=== PATIENT | female | born 1985 | race Two or more races ===

== ENCOUNTER 2024-09-15 18:47 | Emergency (ER) | payer OTHER, SELFPAY ==
[2024-09-15] VITALS (10 sets, daily range): BP systolic 97–175; BP diastolic 71–131; PULSE 72–103; RESP 13–20; TEMP 36.8–36.9; O2SAT 90–99; BMI 32.2
--- NOTE | 2024-09-15 19:40 | XR_ITS ---
Examination: PA lateral chest 2 views TECHNIQUE: Upright PA lateral chest 2 views Examination time: September 15, 2024 at 1950 hours INDICATIONS: Coughing fever beginning 5 days ago. FINDINGS: Normal heart size. The lungs are clear. The osseous structures are intact IMPRESSION: No active disease
--- NOTE | 2024-09-15 19:40 | EKG_ITS ---
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1985 Requested By: Alexi Resendiz ([facility]) Order Number: [id number] Reading MD: Alexi Resendiz ([facility]) Measurements Intervals [place] Rate: 99 P: 62 VA: 128 QRS: 33 QRSD: 84 T: 53 QT: 344 QTc: 442 Interpretive Statements SINUS RHYTHM WITH SINUS ARRHYTHMIA POSSIBLE LEFT ATRIAL ENLARGEMENT [-0.1mV P WAVE IN V1/V2] POSSIBLE RIGHT VENTRICULAR CONDUCTION DELAY [RSR (QR) IN V1/V2] SEPTAL MYOCARDIAL INFARCTION , OF INDETERMINATE AGE [40+ ms Q WAVE IN V1/V2] No previous ECG available for comparison /store/S0/[id number].pdf
--- NOTE | 2024-09-15 19:40 | PD.EDRME ---
Rapid Medical Screening Exam RME Arrival date/time: 09/15/24 18:47 39-year-old obese female with past medical history of hypertension noncompliant presents emergency department complaining of chest tightness and pressure that is been ongoing for several days. Chief Complaint: Chest Pain Time Seen by Provider: 09/15/24 19:36 Vital signs: Vital Signs Temperature 98.5 F 09/15/24 19:29 Pulse Rate 91 09/15/24 19:29 Respiratory Rate 20 09/15/24 19:29 Blood Pressure 155/109 H 09/15/24 19:29 Pulse Oximetry (%) 97 09/15/24 19:29 Oxygen Delivery Method Room Air 09/15/24 19:29 Vital signs reviewed by provider: Yes
[2024-09-15 20:14] LABS: Basophils % (Auto) 0 % (0-2.5); Eosinophils # (Auto) 0.1 Thou/mm3 (0.0-0.5); Eosinophils % (Auto) 1 % (0-10); Hematocrit 39.9 % (36.0-46.0); Hemoglobin 13.5 g/dL (12.0-16.0); Immature Granulocytes % (Auto) 0 % (0-0); Immature Granulocytes Auto 0.02 Thou/mm3 (0.00-0.00); Lymphocytes # (Auto) 1.4 Thou/mm3 (1.0-4.8); Lymphocytes % (Auto) 20 % (10-50); Mean Corpuscular HGB Conc 33.8 g/dl (31.0-37.0); Mean Corpuscular Hemoglobin 27.5 pg (25.0-35.0); Mean Corpuscular Volume 81 fL (80-100); Monocytes # (Auto) 0.5 Thou/mm3 (0.0-0.8); Monocytes % (Auto) 7 % (0-12); Neutrophils # (Auto) 5.1 Thou/mm3 (1.8-7.7); Neutrophils % (Auto) 72 % (37-80); Nucleated Red Blood Cell % 0 /100 WBC (0); Platelet Count 230 Thou/mm3 (140-440); Red Blood Count 4.91 Miln/mm3 (4.00-5.20); White Blood Count 7.1 Thou/mm3 (3.6-11.0)
[2024-09-15] MEDS: hydrALAZINE HCL 25 MG TABLET PO (20:20)
[2024-09-15 20:34] LABS: B-Type Natriuretic Peptide < 20 pg/mL (0-100)
[2024-09-15 20:36] LABS: Alanine Aminotransferase 166 U/L (10-49); Albumin, Serum 4.6 gm/dL (3.5-5.0); Albumin/Globulin Ratio 1.6 (1.2-2.2); Alkaline Phosphatase 105 U/L (46-116); Anion Gap 8 (7-16); Aspartate Amino Transferase 112 U/L (0-34); BUN/Creatinine Ratio 16 Ratio (12-20); Bilirubin,Total 0.6 mg/dL (0.3-1.2); Blood Urea Nitrogen 13 mg/dL (9-23); Carbon Dioxide 28.2 mMol/L (20.0-31.0); Chloride 105 mMol/L (98-107); Creatinine (Component) 0.8 mg/dL (0.6-1.3); Estimated Creatinine Clearance 84.5 mL/min (>60); Globulin 2.8 gm/dL (2.3-3.5); Glucose 107 mg/dL (74-106); Osmolality,Calculated 281 (275-295); Potassium 3.9 mMol/L (3.4-5.1); Sodium 141 mMol/L (136-145); Total Protein 7.4 gm/dL (5.7-8.2); Troponin I < 0.002 ng/mL (0.0-0.045); eGFR > 60 See Note
[2024-09-15 20:40] LABS: HCG,Qualitative Serum Negative
[2024-09-15 23:18] LABS: Amphetamine/Methamp Scrn,U Negative (Negative); Barbiturate Screen,Urine Negative (Negative); Benzodiazepines Screen,Urine Negative (Negative); Benzoylecgonine Screen, Ur Negative (Negative); Fentanyl Screen,Urine Negative (Negative); Opiate Screen,Urine Negative (Negative); THC Screen,Urine Negative (Negative)
--- NOTE | 2024-09-15 23:34 | EDNOTE_ITS ---
ED Chest Pain RME/HPI General Chief Complaint: Chest Pain Stated Complaint: RAN OUT OF HTN PILLS C/O CHEST TIGHTNESS Time Seen by Provider: 09/15/24 19:36 Source: patient Arrival date/time: 09/15/24 18:47 Mode of arrival: ambulatory Limitations: no limitations RME / HPI RME / HPI narrative: 09/15/24 18:47 39-year-old obese female with past medical history of hypertension noncompliant presents emergency department complaining of chest tightness and pressure that is been ongoing for several days. Dr. Michael?s Main ED Evaluation: 39-year-old female presenting to the emergency department with complaints of chest tightness, which she rates as 5 out of 10 in severity. The discomfort has been persistent for the past two days and is accompanied by cough, shortness of breath, chills, muscle aches, sore throat, headache, dizziness, diarrhea, and a runny nose. The chest tightness since yesterday, intermittent, non-radiating and not associated with palpitations, syncope, or chest pressure. She reports difficulty breathing, which has worsened over the past week. She has no known sick contacts at home. She also reports that she has run out of her prescribed hypertension medication, which she has not taken for an unspecified period. She last took Motrin at 5:00 PM to relieve her symptoms, with no significant improvement. The persistence of symptoms and worsening breathing prompted her visit to the ER. Related Data Previous Rx's ?Medication ?Instructions ?Recorded amoxicillin 875 mg-potassium 1 tab PO BID #14 tabs 11/05 clavulanate 125 mg tablet Allergies Allergy/AdvReac Type Severity Reaction Status Date / Time No Known Drug Allergies Allergy Verified 09/15/24 18:49 Review of Systems Review of Systems Systems Reviewed: All systems reviewed, normal except as documented Past Medical History Past Medical History CARDIAC: Positive Hypertension; Negative Congestive Heart Failure RESPIRATORY: Negative Chronic Obstructive Pulmonary Disease (COPD) GENITOURINARY: Negative Renal Disease ENDOCRINE: Negative Diabetes Mellitus Type 1 OTHER HISTORY: Negative Blood Transfusions Social History SMOKING STATUS: Never smoker ED Exam General Limitations: Present no limitations General appearance: Present alert, in no apparent distress and other (Patient appears mildly uncomfortable but is alert and oriented. Appears dehydrated, eyes sunken in.) Head Head exam: Present atraumatic Eye Eye exam: Present normal appearance, PERRL, EOMI and other (No jaundice; sclera are anicteric.) ENT ENT exam: Present normal exam, normal oropharynx and mucous membranes moist Neck Neck exam: Present normal inspection, full ROM and trachea midline Chest Chest inspection: Present normal inspection and symmetric chest wall rise Respiratory Respiratory exam: Present normal lung sounds bilaterally Cardiovascular Cardiovascular exam: Present regular rate, normal rhythm and normal heart sounds Abdominal Exam Abdominal exam: Present soft, normal bowel sounds and other (RUQ tenderness to palpation without rebound or guarding. Abdomen appears bloated but is non- distended. ) Extremities Exam Extremities exam: Present normal inspection and full ROM Back Exam Back exam: Present normal inspection and full ROM Neurological Exam Neurological exam: Present alert, oriented X3 and CN II-XII intact Psychiatric Psychiatric exam: Present normal affect and normal mood Skin Skin exam: Present warm, dry, intact and normal color Course Course Course Narrative: CXR is ordered for determining etiology of chest pain. Quality Measures none Orders Category Date Time Status Bedside Influenza A&B Antigen Test NOW Care 09/15/24 19:[address] Screening NOW Care 09/16/24 01:00 Completed EKG (ED ONLY) *Do not use* NOW Care 09/15/24 19:40 Completed Saline [Insert IV] STAT Care 09/16/24 01:[address] angio chest Stat Exams 09/16/24 01:00 Completed EKG (ED Only) Stat Exams 09/15/24 19:40 Draft XR chest 2V Stat Exams 09/15/24 19:40 Completed BNP [B-Type Natriuretic Peptide] Stat Lab 09/15/24 19:57 Completed CBC Stat Lab 09/15/24 19:57 Completed Comprehensive Metabolic Panel Stat Lab 09/15/24 19:57 Completed Drug Screen,Urine Stat Lab 09/15/24 20:15 Completed HCG,Qualitative Serum Stat Lab 09/15/24 19:57 Completed Troponin I Stat Lab 09/15/24 19:57 Completed Acetaminophen Tab [Tylenol Tab] Med 09/16/24 01:32 Discontinued 650 mg PO X1 ONE DiphenhydrAMINE INJ [Benadryl Inj] Med 09/16/24 02:52 Discontinued 25 mg IVP X1 ONE Metoclopramide Inj [Reglan Inj] Med 09/16/24 03:09 Discontinued 10 mg .ROUTE .STK-MED ONE Metoclopramide Inj [Reglan Inj] Med 09/16/24 02:52 Discontinued 10 mg IVP X1 ONE Ondansetron Inj [Zofran Inj] Med 09/16/24 01:02 Discontinued 4 mg IV X1 ONE Sodium Chloride 0.9% 1000 ml [Ns] 1,000 ml Med 09/16/24 01:00 Discontinued IV 999 mls/hr hydrALAZINE HCL [Apresoline] Med 09/15/24 19:42 Discontinued 25 mg PO X1 ONE Vital Signs Vital signs: Vital Signs Temperature 98.5 F 09/15/24 19:29 Pulse Rate 91 09/15/24 19:29 Respiratory Rate 20 09/15/24 19:29 Blood Pressure 155/109 H 09/15/24 19:29 Pulse Oximetry (%) 97 09/15/24 19:29 Oxygen Delivery Method Room Air 09/15/24 19:29 Procedures -ED EKG Interpretation #1: Additional EKG comment: The EKG, personally interpreted on 09/15/2024 at 19:43, shows normal sinus rhythm (NSR) with a heart rate of 99 bpm, non-specific findings, and no ST elevations or depressions. Chest Pain MDM Narrative MDM Narrative:: The differential diagnosis includes hypertensive emergency, hypertensive urgency, and pneumonia. Scribe Attestation: ISade, am scribing for and in the presence of Dr. Michael. Provider Notation: Although this document has been carefully reviewed, there may still be some phonetic and other typographical errors. These errors are purely grammatical due to imperfections in the software program and should not be construed in any way to compromise the substance of the patient's medical care during this visit. Patient data External records reviewed:: [facility] previous records Clinical information provided by:: patient Social determinants that could affect healthcare access:: none Patient has the following chronic illnesses:: see PMH How is presenting disease/condition affected by chronic disease/condition?: uneffected by Evaluation data The following diagnostics were reviewed and interpreted by me:: lab results, radiology exam(s) and EKG tracing(s) Lab and/or radiology exams considered but not ordered:: none Interpretation Summary: I personally reviewed the radiology data and agree with the radiologist's interpretation. Examination: PA lateral chest 2 views TECHNIQUE: Upright PA lateral chest 2 views Examination time: September 15, 2024 at 1950 hours INDICATIONS: Coughing fever beginning 5 days ago. FINDINGS: Normal heart size. The lungs are clear. The osseous structures are intact IMPRESSION: No active disease Dictated By: Reagan Holloway MD CT angiogram of the chest with intravenous contrast September 16, 2024 0214 hours Clinical History: 39yo with chest pain Comparison: None. Findings: There is no filling defect within the pulmonary artery divisions to suggest pulmonary thromboembolism. The mediastinum demonstrates no evidence of mass or lymphadenopathy. The thoracic aorta is unremarkable. There is no pericardial effusion. Ground-glass opacities along the left major fissure in the left lower lobe. No evidence of pleural effusion or pneumothorax. The osseous structures are unremarkable. Status post cholecystectomy. No biliary duct dilation. Impression: No CT evidence of pulmonary thromboembolism. Ground-glass opacities along the left major fissure in the left lower lobe, probably infectious/inflammatory. Medications / Prescriptions Medications or Prescriptions considered but not ordered:: none Medication administrations:: Medication Administration History Discontinued Medications Acetaminophen (Acetaminophen 325 Mg Tablet) 650 mg PO X1 ONE Stop: 09/16/24 01:33 Last Admin: 09/16/24 01:38 Dose: 650 mg Documented By: DAVID Diphenhydramine HCl (Diphenhydramine Inj 50 Mg/Ml Vial) 25 mg IVP X1 ONE Stop: 09/16/24 02:53 Last Admin: 09/16/24 03:16 Dose: 25 mg Documented By: DAVID Hydralazine HCl (Hydralazine Hcl 25 Mg Tablet) 25 mg PO X1 ONE Stop: 09/15/24 19:43 Last Admin: 09/15/24 20:20 Dose: 25 mg Documented By: KG Sodium Chloride (Ns) 1,000 mls @ 999 mls/hr IV .Q1H1M ONE Stop: 09/16/24 02:00 Last Infusion: 09/16/24 02:12 Dose: Infused Documented By: Admin: 09/16/24 01:38 Dose: 999 mls/hr Documented By: DAVID Metoclopramide HCl (Metoclopramide Inj 5 Mg/Ml Vial 2 Ml) 10 mg IVP X1 ONE; Protocol Stop: 09/16/24 02:53 Last Admin: 09/16/24 03:17 Dose: 10 mg Documented By: DAVID Metoclopramide HCl (Metoclopramide Inj 5 Mg/Ml Vial 2 Ml) Confirm Administered Dose 10 mg .ROUTE .STK-MED ONE Stop: 09/16/24 03:10 Last Admin: 09/16/24 03:22 Dose: Not Given Documented By: DAVID Non-Admin Reason: Duplicate Medication on eMAR Ondansetron HCl (Ondansetron Inj 2 Mg/Ml Inj 2 Ml) 4 mg IV X1 ONE; Protocol Stop: 09/16/24 01:03 Last Admin: 09/16/24 01:38 Dose: 4 mg Documented By: DAVID as above Consultations Consultation(s) initiated? (list below): No Diagnosis Chest Pain Differential Diagnosis: other (see narrative) Most likely diagnosis given after review of the tests above:: see clinical impression Admission Indicated Admission indicated?: not indicated Explain why admission is indicated or not indicated:: Emergency Department documentation was reviewed including triage complaint, associated symptoms, administration of medications, response to therapy and vital signs. Given the history, physical exam, and review of any performed laboratory and imaging studies the patient is being discharged in stable condition. I advised the patient to followup with their outpatient provider for further diagnostic testing and treatments as needed. Strict return precautions were given. Admission Request Was there a request for admission?: No Disposition Plan Disposition Plan: Discharge Discharge Attestation Discharge Attestation: The patient and all family members were given an opportunity to ask questions and understood the discharge instructions. Discharge instructions specifically effects, indications for sooner follow up or return to the emergency department, and the expected course of current diagnosis. Patient condition: Stable Discharge Plan Plan Patient Disposition: HOME (Self Care) Prescriptions/Referrals Prescriptions/Med Rec: New amoxicillin-pot clavulanate 875-125 mg tablet 1 tab PO BID Qty: 14 0RF Referrals: No Primary/Family,Physician [Primary Care Provider] - In 1 week Problem List Clinical Impression: Left lower lobe pneumonia Patient/Caregiver Discharge Instructions Education Materials: ED Pneumonia (Adult) Additional Instructions: 1. Please take the antibiotics as prescribed. If you are taking control pill you will have to use alternate form of protection for the next 30 days. 2. Use the inhaler as prescribed 3 times a day as needed for wheezing or cough. 3, you can take [id number] Tylenol 650 mg 3 times a day or Motrin 800 mg 3 times a day with food for the next 2 to 3 days for fever and/or pain. 4. Follow-up with your primary care physician in the next 72 hours If you do not have a primary care physician you can follow-up with the [facility] at [address] the phone number is [phone]. 5. Return to emergency department for any worsening symptoms, you cannot tolerate liquids, you are feeling worse, or any other concerns. I do not know what blood pressure medications you are taking therefore you will need to call your primary care physician to day so that they can give you a new prescription and/or refill. Print Language: Khmer Stand Alone Forms: [employer] Info., Patient Portal Info Letter
[2024-09-16] VITALS (18 sets, daily range): BP systolic 124–162; BP diastolic 85–118; PULSE 67–105; RESP 11–18; TEMP 36.7–36.9; O2SAT 93–100
--- NOTE | 2024-09-16 01:00 | XR_ITS ---
Examination: CTA chest with intravenous contrast 2-D reconstructions 3-D reconstructions, vascular Date and time of exam: September 16, 2024 0214 hours INDICATIONS: Chest pain shortness of breath beginning 2 days ago CTDI: vol (mGy) 18.93 DLP: (mGycm) 469 Technique: Multiple axial sections of the thorax have been obtained. 3 mm slice thickness, from below the hemidiaphragms to above the apices of the lungs. Mediastinal and lung density settings have been obtained. 2-D sagittal and coronal reconstructions. 3-D angiographic renderings, 3-D volume renderings, 3D post processing, vascular maximum intensity projections obtained. Contrast administered is 100 cc [id number]. Low dose protocols were performed. One or more of the following dose reduction techniques were used; automated exposure control, adjustment of the mA and/or KV according to patient size, use of iterative reconstruction technique. Findings: No thoracic aortic aneurysm dilatation or dissection Pulmonary artery segments are not enlarged No pulmonary artery emboli No paratracheal tracheobronchial or bronchopulmonary adenopathy Mild opacity in the left lower lobe No pleural disease No visualized liver or splenic lesion Absent gallbladder No pancreatic or adrenal mass IMPRESSION: Negative for pulmonary artery emboli Suspicious for early left lower lobe pneumonia
[2024-09-16] MEDS: ACETAMINOPHEN 325 MG TABLET 650 MG PO (01:38)
[2024-09-16] MEDS: SODIUM CHLORIDE 0.9% 1000 ML 1,000 ML 999 ML IV (01:38)
[2024-09-16] MEDS: ONDANSETRON INJ 2 MG/ML INJ 2 ML 4 MG IV (01:38)
[2024-09-16] MEDS: DiphenhydrAMINE INJ 50 MG/ML VIAL 25 MG IVP (03:16)
[2024-09-16] MEDS: METOCLOPRAMIDE INJ 5 MG/ML VIAL 2 ML 10 MG IVP (03:17)
--- NOTE | 2024-09-16 04:30 | PRELIM_ITS ---
CT angiogram of the chest with intravenous contrast (axial sections with sagittal and coronal reformats) September 16, 2024 0214 hours Clinical History: 39yo with chest pain Technique:Helical axial sections with sagittal and coronal reformats of the chest were obtained with intravenous contrast. Iterative reconstruction technique was employed to reduce patient radiation exposure. 3D/MIP reconstructed images were also provided. Comparison: None. Findings: There is no filling defect within the pulmonary artery divisions to suggest pulmonary thromboembolism. The mediastinum demonstrates no evidence of mass or lymphadenopathy. The thoracic aorta is unremarkable. There is no pericardial effusion. Ground-glass opacities along the left major fissure in the left lower lobe. No evidence of pleural effusion or pneumothorax. The osseous structures are unremarkable. Status post cholecystectomy. No biliary duct dilation. Impression: No CT evidence of pulmonary thromboembolism. Ground-glass opacities along the left major fissure in the left lower lobe, probably infectious/inflammatory. Report Electronically Signed By: Joao Colbert 09/16/2024 4:30:06 AM [EST]
== END 2024-09-16 07:35 | disposition home or self-care (01) ==
PROVIDERS: Emergency Provider Emergency Medicine
DX: R07.89 Other chest pain (principal); E66.9 Obesity, unspecified; I10 Essential (primary) hypertension; Z91.199 Patient's noncompliance with other medical treatment and regimen due to unspecified reason; Z68.32 Body mass index [BMI] 32.0-32.9, adult
CPT/HCPCS: 36415; 71046; 71275; 80053; 80307; 83880; 84484; 84703; 85025; 87400; 87811; 93005; 96361; 96374; 96375; 99285; A4649; J1200; J2405; J2765; J7030; Q9967; A9270

== ENCOUNTER → 2024-09-24 | Outpatient (CLI) | payer OTHER, SELFPAY ==
--- NOTE | 2024-09-24 | XR_ITS ---
Examination: PA lateral chest 2 views TECHNIQUE: Upright PA lateral chest 2 views Exam date and time: September 24, 2024 0952 hours Comparison September 15, 2024 INDICATIONS: Pneumonia diagnosis 2 weeks ago FINDINGS: Normal heart size. Lungs are clear. The osseous structures are intact IMPRESSION: No active disease
== END | disposition home or self-care (01) ==
PROVIDERS: PCP Nurse Practitioner Family; Referring Provider Nurse Practitioner Family; Visit Provider Nurse Practitioner Family
DX: J18.9 Pneumonia, unspecified organism (principal)
CPT/HCPCS: 71046

== ENCOUNTER → 2024-11-08 | Outpatient (CLI) | payer OTHER, SELFPAY ==
--- NOTE | 2024-11-08 09:15 | XR_ITS ---
Examination: Screening digital mammography, bilateral Computer aided detection 3-D breast Tomosynthesis, bilateral Date and time of exam: November 08, 2024 0919 hours Indication: Screening Technique: Nonmagnified MLO, CC views of the breasts to been obtained, reconstructed from 3-D Tomosynthesis images. R2 computer aided detection program utilized for evaluation of suspicious masses and/or abnormal calcifications. 3-D Tomosynthesis images obtained. Findings: The breasts are heterogeneously dense, which may obscure small masses 10 mm nodule partially indistinct margins upper outer right breast Impression: BI-RADS Category 0: Incomplete: Need additional imaging evaluation 10 mm nodule partially indistinct margins upper outer right breast, recommend follow-up spot tomographic views of this nodule as well as right breast sonography to complete the workup.
== END | disposition home or self-care (01) ==
LOC: CDIM 08:47
PROVIDERS: Referring Provider Physician Assistant Medical; Visit Provider Physician Assistant Medical
DX: Z12.31 Encounter for screening mammogram for malignant neoplasm of breast (principal); R92.8 Other abnormal and inconclusive findings on diagnostic imaging of breast; N63.11 Unspecified lump in the right breast, upper outer quadrant
CPT/HCPCS: 77063; 77067

== ENCOUNTER → 2024-11-11 | Outpatient (CLI) | payer OTHER, SELFPAY ==
--- NOTE | 2024-11-11 08:59 | XR_ITS ---
Examination: Diagnostic digital mammography, unilateral, right Computer aided detection 3-D breast Tomosynthesis, unilateral Date and time of exam: November 11, 2024 0906 hours INDICATIONS: Mammogram October 31, 2024 10 mm nodule upper outer right breast Technique: Nonmagnified MLO, CC views of the right breast have been obtained, reconstructed from 3-D Tomosynthesis images. R2 computer aided detection program utilized for evaluation of suspicious masses and/or abnormal calcifications. 3-D Tomosynthesis images obtained. Findings: The breast is heterogeneously dense, which may obscure small masses No suspicious masses confirmed on the spot compression views Right breast sonogram today demonstrates benign cysts 11 12:00 position right breast Impression: BI-RADS category 2: Benign findings Return to yearly follow-up mammography
--- NOTE | 2024-11-11 09:35 | XR_ITS ---
Examination: Breast ultrasound, unilateral, right Date and time of exam: November 11, 2024 0949 hours INDICATIONS: Mammogram October 31, 2024 10 mm nodule upper outer right breast partially indistinct margins Technique: Real-time hooks scale ultrasonographic imaging performed right breast including all 4 quadrants as well as nipple retroareolar and axillary region. Findings: 12:00 cyst 5 x 6 mm 11:00 cyst 5 x 6 mm No solid nodules IMPRESSION: BI-RADS Category 2: Benign findings
== END | disposition home or self-care (01) ==
PROVIDERS: Referring Provider Specialist; Visit Provider Specialist
DX: R92.321 Mammographic fibroglandular density, right breast (principal); N60.01 Solitary cyst of right breast
CPT/HCPCS: 76641; 77061; 77065; G0279